=== PATIENT | male | born 1995 | race Caucasian/White ===

== ENCOUNTER 2017-06-20 17:23 | Emergency (ER) | payer SELFPAY ==
[~2017-06-20] VITALS: Ht 195.6 cm; Wt 68.0 kg
[2017-06-20 17:41] VITALS: BP 122/84
== END 2017-06-20 21:40 | disposition left against medical advice (07) ==
LOC: ER 17:23
DX: Z53.21 Procedure and treatment not carried out due to patient leaving prior to being seen by health care provider (principal)